=== PATIENT | female | born 1940 | race Caucasian/White ===

== ENCOUNTER 2020-07-16 12:54 | Outpatient (CLI) | payer MEDICARE, OTHER, SELFPAY ==
--- NOTE | ~2020-07-16 | XR_ITS ---
XR knee RT min 4V 07/16/2020 13:29 Indication: Right knee pain Procedure: 4 views right knee Comparison: No prior studies for comparison. Findings: No fracture or traumatic malalignment. The right total knee arthroplasty well seated. No ev idence for loosening. No significant joint effusion. Impression: 1: No significant bone or joint abnormality. Reviewed, dictated and finalized at location B. Impression: 1: No significant bone or joint abnormality.
--- NOTE | ~2020-07-16 | XR_ITS ---
XR knee LT min 4V 07/16/2020 13:29 Indication: 4 views left knee Procedure: 4 views left knee Comparison: No prior studies for comparison Findings: No fracture or traumatic malalignment. Mild tricompartment osteoarthritis. There is chondro calcinosis. No significant joint effusion. No foreign bodies. No focal soft tissue abnormality. Impression: 1: Mild osteoarthritis of the left knee. 2: Chondrocalcinosis. Reviewed, dictated and finalized at location B. Impression: 1: Mild osteoarthritis of the left knee. 2: Chondrocalcinosis.
== END 2020-07-16 12:55 | disposition home or self-care (01) ==
LOC: ANHIMG 13:04
PROVIDERS: PCP Family Medicine; Visit Provider Orthopaedic Surgery
DX: M17.12 Unilateral primary osteoarthritis, left knee (principal); M25.561 Pain in right knee
CPT/HCPCS: 73564

== ENCOUNTER 2021-07-03 10:46 | Outpatient (CLI) | payer MEDICARE, OTHER, SELFPAY ==
--- NOTE | 2021-07-03 11:13 | ECG_ITS ---
Measurements Intervals [place] Rate: 66 P: 213 VT: 168 QRS: 28 QRSD: 93 T: -14 QT: 406 QTc: 426 Interpretive Statements ELECTRONIC ATRIAL PACEMAKER NONSPECIFIC ST & T-WAVE ABNORMALITY ABNORMAL ECG NO PREVIOUS ECG AVAILABLE FOR COMPARISON Electronically Signed On 07-03-2021 15:56:49 CDT by Emerson Diaz M.D.
[2021-07-03 11:22] LABS: Hematocrit 40.8 % (37.0-47.0); Hemoglobin 13.1 g/dL (12.0-15.0)
[2021-07-03 11:34] LABS: Albumin Level 4.7 g/dL (3.5-5.1); Estimated Glomerular Filt Rate 60
== END 2021-07-03 10:47 | disposition home or self-care (01) ==
PROVIDERS: PCP Family Medicine; Visit Provider Orthopaedic Surgery
DX: Z01.818 Encounter for other preprocedural examination (principal); M17.12 Unilateral primary osteoarthritis, left knee; I10 Essential (primary) hypertension; Z95.0 Presence of cardiac pacemaker
CPT/HCPCS: 36415; 82040; 82565; 85014; 85018; 93005

== ENCOUNTER 2021-07-08 07:28 | Outpatient (CLI) | payer MEDICARE, OTHER, SELFPAY ==
--- NOTE | ~2021-07-08 | CT_ITS ---
EXAMINATION: CT LE LT wo con DATE: 07/08/2021 08:05 INDICATION: Unilateral primary osteoarthritis of the left knee TECHNIQUE: High resolution computed tomography (CT) of the left lower limb from the hip through the f oot was performed without intravenous contrast. Additional sagittal and coronal reconstructions were performed. Automated exposure control and iterative reconstruction technique were employed. The dose- length product was 1440.64 mGy-cm. COMPARISON: Radiographs dated 07/16/2020 FINDINGS: Bone alignment is normal. No fracture. There is joint space narrowing at the knees, mild in the later al compartment and mild to moderate in the medial compartment although severity of joint space narrow ing can be underestimated on nonweightbearing imaging. No knee joint effusion. Chondrocalcinosis invo lving the medial and lateral menisci of the left knee. Left knee joint effusion. Small amount of dyst rophic calcification at the distal semimembranosus tendon as well as along the anterior cruciate liga ment which could be either enthesopathic or related to a crystal deposition disease. Additional small amount of dystrophic calcification along the posterior deep deltoid ligament at the left ankle also likely either sequela of prior trauma or related to crystal deposition disease. Mild left hip osteoarthritis. 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 Soft tissues are otherwise unre markable. No pathologically enlarged lymphadenopathy left groin or visualized pelvis. IMPRESSION: 1. Chondrocalcinosis at the left knee with at least mild to moderate osteoarthritis in the medial com partment. 2. Subtle dystrophic calcific lesions at the anterior cruciate ligament, semimembranosus tendon and d eep deltoid ligament at the ankle which could be either degenerative, sequela of old trauma or potent ially related to a crystalline deposition disease such as gout or calcium pyrophosphate deposition (C PPD) disease. Reviewed, dictated and finalized at location A. IMPRESSION: 1. Chondrocalcinosis at the left knee with at least mild to moderate osteoarthr itis in the medial compartment. 2. Subtle dystrophic calcific lesions at the anterior cruciate ligament, semime mbranosus tendon and deep deltoid ligament at the ankle which could be either d egenerative, sequela of old trauma or potentially related to a crystalline depo sition disease such as gout or calcium pyrophosphate deposition (CPPD) disease.
== END 2021-07-08 07:29 | disposition home or self-care (01) ==
LOC: ANHIMG 07:35
PROVIDERS: PCP Family Medicine; Visit Provider Orthopaedic Surgery
DX: Z01.818 Encounter for other preprocedural examination (principal); M11.262 Other chondrocalcinosis, left knee; D17.9 Benign lipomatous neoplasm, unspecified; M17.12 Unilateral primary osteoarthritis, left knee; M25.462 Effusion, left knee
CPT/HCPCS: 73700

== ENCOUNTER 2021-08-28 13:50 | Outpatient (CLI) | payer MEDICARE, OTHER, SELFPAY ==
[2021-08-28 15:31] LABS: Basophils Percent Auto 0.6 % (0.2-1.2); Eosinophils Absolute Auto 0.1 K/mm3 (0-0.3); Eosinophils Percent Auto 1.4 % (0-4.4); Hematocrit 40.4 % (37.0-47.0); Hemoglobin 12.9 g/dL (12.0-15.0); Immature Granulocyte Absolute 0.01 K/mm3 (0.00-0.031); Immature Granulocyte Percent A 0.2 % (0-0.5); Lymphocytes Absolute Auto 1.69 K/mm3 (0.9-3.2); Lymphocytes Percent Auto 25.5 % (18.3-44.2); Mean Corpuscular HGB Conc 31.9 g/dl (32-36); Mean Corpuscular Hemoglobin 29.3 pg (26-34); Mean Corpuscular Volume 91.6 fl (80-100); Mean Platelet Volume 9.9 fl (7.4-10.4); Monocytes Absolute Auto 0.6 K/mm3 (0.1-0.6); Monocytes Percent Auto 8.6 % (2.6-8.5); Neutrophils Absolute Auto 4.2 K/mm3 (1.3-6.7); Neutrophils Percent Auto 63.7 % (45.5-73.1); Platelet Count Result 166 k/mm3 (150-375); Red Blood Count 4.41 M/mm3 (4.2-5.4); Red Cell Distribution Width 12.7 % (11.5-14.5); White Blood Count 6.6 K/mm3 (4.5-10.0)
[2021-08-28 15:35] LABS: Albumin Level 4.7 g/dL (3.5-5.1); Estimated Glomerular Filt Rate 53; Glucose 92 mg/dL (65-110)
[2021-08-28 15:48] LABS: Urine Cotinine NEGATIVE
== END 2021-08-28 13:51 | disposition home or self-care (01) ==
LOC: ANHSURGERY 13:56
PROVIDERS: PCP Family Medicine; Visit Provider Orthopaedic Surgery
DX: M17.12 Unilateral primary osteoarthritis, left knee (principal); Z01.818 Encounter for other preprocedural examination
CPT/HCPCS: 80307; 82040; 82565; 82947; 83036; 85025; 87081

== ENCOUNTER 2021-09-24 00:48 | Day surgery (SDC) | payer MEDICARE, SELFPAY ==
--- NOTE | 2021-08-28 14:05 | PC.NURSE ---
Report to the Outpatient Waiting Room, entrance under the green pavilion located off [facility], at time _0600_ on date _09/24/21_. OR Time: _0730_. - You and your visitor will be asked a series of questions to screen for COVID 19 for your protection. - Only one visitor is allowed at this time. - The patient visitor is requested to leave or wait in car when not with patient. - A mask is required within the hospital. Patients may have clear liquids (water, carbonated beverages, clear teas, apple juice) until 3 hours prior to surgery (0430 AM) with a maximum of 20 ounces. - No food from midnight until time of surgery Take the following medications with a SIP of water the morning of surgery: _AMLODIPINE, LEVOTHYROXINE, SERTRALINE_ Medications to discontinue per DR. MORALES - ASPIRIN 7 DAYS PRIOR TO SURGERY, Date to take last dose 09/16/[address] MORALES AT 08/28/21 3:15 APPT_ Medications to discontinue per ANESTHESIA - MULTIVITAMIN, VITAMIN E, PROBIOTIC - 3 DAYS PRIOR TO SURGERY, Date to take last dose 09/20/21 Please no make-up, nail central african, hairspray, perfume, deodorant, or body powder the day of surgery. No jewelry (including any body piercings) or valuables the day of surgery, leave them at home. Please take a shower or bath the night before, or the morning of, surgery with an antibacterial soap. Wear comfortable, loose fitting clothing. - Jewelry must be removed prior to entering the operating room. Rings and piercings that are not removed may be cut off. - The hospital will not accept responsibility for valuables. - Please leave all valuables, including medications, at home the day of surgery. If you are going home after surgery, a licensed bottom hoop driver must drive you home. - NO public transportation without another adult. - We recommend that an adult stay with you for 24 hours following discharge. - We also recommend that you do not drive, make important decision, drink alcoholic beverages, or take any drugs that were not prescribed by your health care provider for at least 24 hours after your discharge time. Follow any additional instructions given to you from DR. MORALES. TOTAL JOINT CLASS 09/04/21 @ [address] [place] [address]-USE MAIN ENTRANCE, LOWER LEVEL If you or anyone in your household have experienced Covid symptoms in the past week, please notify your surgeon or the nurse liaison at the phone number below for possible testing. Instructions given to ___PT and asked if any additional questions and then verbalized understanding. Patient advised to call surgeon office or pre surgery nurse liaison [phone] if any additional questions.
[2021-08-28 14:29] VITALS: BP 154/76; PULSE 66; RESP 18; TEMP 36.6; O2SAT 96; BMI 25.4
[2021-09-24] VITALS (16 sets, daily range): BP systolic 101–154; BP diastolic 46–74; PULSE 60–69; RESP 12–18; TEMP 36.3–37.1; O2SAT 94–100
--- NOTE | ~2021-09-24 | XR_ITS ---
EXAMINATION: XR knee LT 2V DATE: 09/24/2021 11:54 CDT INDICATION: Left knee arthroplasty TECHNIQUE: 2 views left knee FINDINGS: There is a left total knee arthroplasty in expected position. Subcutaneous gas with fluid and air in the joint are consistent with recent surgery. No evidence of periprosthetic fracture. IMPRESSION: 1. Recent left total knee arthroplasty. Reviewed, dictated and finalized at location A.
[2021-09-24] MEDS: LACTATED RINGERS 1,000 ML 30 ML IV CONT ×2 (07:02→10:07)
--- NOTE | 2021-09-24 07:03 | WPDHPUPDATE1 ---
History and Physical Update Update Date/Time: 09/24/21 07:03 History and Physical has been reviewed, including an updated exam of the patient. There are NO changes in the patient's condition. Risks, benefits, and alternatives have been discussed and questions answered. Patient agrees to proceed with procedure.
[2021-09-24] MEDS: ACETAMINOPHEN 500 MG TABLET 1000 MG PO (07:05)
[2021-09-24] MEDS: TRANEXAMIC ACID 1,000MG/ISO100 1,000 MG/100 ML BAG 200 MG IVPB (07:05)
--- NOTE | 2021-09-24 07:08 | WPDANESEPPF ---
Anes - Initial Pre Proc Eval Procedure: Operation Date: 09/24/21 07:30 Proposed Procedures p Left Custom Total Knee Arthroplasty - Edgar Wolfe MD Date/Time: 09/24/21 07:08 Surgeon: Edgar Wolfe MD Pre Op Diagnosis: Prim O.A. Lt Knee Patient Data Age: 81 Gender: F Height: 1.55 m Weight: 61.1 kg Last Vital Signs Temp 36.6 C 08/28/21 14:29 Pulse 66 08/28/21 14:29 Resp 18 08/28/21 14:29 BP 154/76 H 08/28/21 14:29 Pulse Ox 96 08/28/21 14:29 O2 Del Method Room Air 08/28/21 14:29 Allergies Allergy/AdvReac Type Severity Reaction Status Date / Time fexofenadine Allergy Severe CHEST PAIN Verified 08/28/21 14:21 prochlorperazine Allergy Severe LOSE Verified 08/28/21 14:21 CONTROL OF LEGS AND TONGUE codeine Allergy Intermediate VOMITING Verified 08/28/21 14:21 hydrocodone Allergy Intermediate VOMITING Verified 08/28/21 14:21 oxybutynin Allergy Intermediate Swelling- Verified 08/28/21 14:21 THROAT CLOSE UP propoxyphene Allergy Intermediate VOMITING Verified 08/28/21 14:21 Sulfa (Sulfonamide Allergy Intermediate Rash Verified 09/20/21 07:56 Antibiotics) erythromycin base Allergy Unknown Unknown-PT Verified 08/28/21 14:21 UNABLE TO RECALL carbamazepine AdvReac Intermediate SICK TO Verified 08/28/21 14:21 STOMACH pentazocine AdvReac Intermediate SICK TO Verified 08/28/21 14:21 STOMACH venlafaxine AdvReac Intermediate VIOLENT Verified 08/28/21 14:21 SHIVERS metoclopramide AdvReac Mild NERVOUS Verified 08/28/21 14:21 Home Medications Medication Instructions Recorded Confirmed Type amlodipine 5 mg tablet 5 mg PO BID 07/13/20 09/24/21 History calcium 600 mg (1,500 mg)-vit 1 tablet PO QAM 07/13/20 09/24/21 History C-vit D3 500 unit-vit E-minerals tablet coenzyme Q10 300 mg capsule (Co 300 mg PO QAM 07/13/20 09/24/21 History Q-10) doxepin 10 mg capsule 10 mg PO HS 07/13/20 08/28/21 History famotidine 20 mg tablet 20 mg PO BID 07/13/20 09/24/21 History levothyroxine 88 mcg capsule 88 mcg PO QAM 07/13/20 09/24/21 History mirabegron 25 mg tablet,extended 50 mg PO QAM 07/13/20 08/28/21 History release 24 hr pantoprazole 20 mg tablet,delayed 20 mg PO QAM 07/13/20 08/28/21 History release sertraline 50 mg tablet 50 mg PO QAM 07/13/20 09/24/21 History vitamin E (dl, acetate) 180 mg 45 mg PO QAM 07/13/20 09/24/21 History (400 unit) capsule aspirin 325 mg tablet 325 mg PO DAILY 07/25/21 09/24/21 History Probiotic 1 cap QAM 08/28/21 09/24/21 History cholecalciferol (vitamin D3) 125 125 mcg PO QAM 08/28/21 09/24/21 History mcg (5,000 unit) capsule Patient hx anesthesia problems: none Family hx anesthesia problems: none Results Review: All pre-operative results and documents have been reviewed as part of the pre-operative evaluation. FOR[facility]LY [facility] Past Medical History Medical History Anemia Atherosclerosis of coronary artery Coronary artery disease Essential (primary) hypertension History of falling History of pacemaker (~07/13/19) History of TIA (transient ischemic attack) Hypotension Hypotensive episode Hypothyroidism Iron deficiency Mixed hyperlipidemia Symptomatic sinus bradycardia Trigeminal neuralgia syndrome Surgical History Surgical History History of appendectomy History of cataract surgery (~2017) History of hysterectomy History of knee replacement procedure of right knee (~11/14/13) History of laparoscopy Scar tissue removed from colon and bladder History of lymph node biopsy Lymph nodes taken out of neck History of surgery (~12/21/19) Cyberknife (1 hour radiation of heart) History of tonsillectomy Status post total knee replacement, right Social History Social History Second hand tobacco smoke exposure: No Add
--- NOTE | 2021-09-24 07:11 | WPDANESPNB ---
Anes - Peripheral Nerve Block Date/Time: 09/24/21 07:11 I have discussed with the patient/family/POA the placement of a peripheral nerve block for post-operative pain management, including associated risks, benefits, complications, and side effects. Alternative methods of post-operative analgesia were detailed. Questions were solicited and answers provided to the satisfaction of the patient/family/POA. Time-Out: A pre-procedural Time-Out was completed immediately before starting the procedure and confirmed: Patient Identification, Site, Procedure, Patient Position and the Availability of Requisite Equipment. Clinical Indications: Acute post-operative pain management requested by the operative surgeon. Nerve Block Insertion Note Anes-nerve block: adductor canal left Patient position: supine Skin prep: chlorhexidine Needle: 22 gauge, stimulating, insulated echogenic needle. Needle length: 80 mm Technique: ultrasound Technique comment: in plane Injectate: bupivacaine 0.5% with epi 5 mcg/ml (30cc) Observations: tolerated well Complications: none Procedure start time:: 720 Procedure end time:: 725
[2021-09-24] MEDS: ceFAZolin 2 GM/D5W 50 ML 2 GM/50 ML BAG IVPB ×3 (07:30→23:06)
--- NOTE | 2021-09-24 09:44 | P.OP_ITS ---
Procedure Note - Detailed Date of Procedure 09/24/21 Pre-op Diagnosis Prim O.A. Lt Knee Post-op Diagnosis Same Procedure Performed Total knee arthroplasty Surgeon Edgar Wolfe MD Lean Process Deployment Consultant Mirna Boles PA-C Anesthesia General and Regional (Subsartorial block.) Description of Procedure Preoperative antibiotics were given. The limb was prepped and draped in the usual sterile fashion with a well-padded tourniquet high on the thigh. The limb was exsanguinated and the tourniquet inflated to 300 mmHg. A longitudinal incision was created just medial to the patella. A trivector approach to the knee was performed. Arthrotomy was taken down through the joint capsule. No significant releases were initially taken. The femur was exposed and the F1 jig was applied. The coring tool was used to remove the cartilage for the F2 jig to sit flush with the bone. The jig was pinned and the distal cut carefully taken. Caliper measurements confirmed appropriate bony resections according to the preoperative templated plan. The F4 cutting jig for the femur was applied, at t he standard rotation. The AP and anterior chamfer cuts were taken. The F5 jig was applied and the posterior chamfer cuts were taken. The tibia was prepared using the T1 jig, after removing cartilage for the jig contact points. Proper alignment was checked with the alignment rebecca. The tibia was cut using the T1u guide. Gap balancing was performed. Gap measurements were taken and the knee was trialed. Excellent alignment and soft tissue balancing was confirmed. The posterior cruciate ligament was recessed along the proximal tibia. Meniscal remnants were removed. The trial components were assembled. Excellent range of motion and proper soft tissue balancing were confirmed throughout the full range of motion. Patellar tracking was excellent. The knee was copiously irrigated periodically throughout the procedure. The real implants were cemented into position. Excess cement was carefully removed. The wound was closed in layers with interrupted #1 Vicryl suture, 2-0 strata fix pope ture, 0 strata fix suture, 2-0 strata fix suture. Steri-Strips placed on the skin with the knee flexed. Sterile bulky dressing applied. The patient was brought to the recovery room in stable condition. There were no complications. Physician biology research assistant, Mirna Boles PA-C, required for surgery; including patient positioning, draping, tissue retraction, maintaining instrument position, cement removal, wound closure, and dressing placement. Implants Conformis Custom total knee arthroplasty. Cemented. Cruciate retaining. 6B insert. Estimated Blood Loss -100.0 Urine Output 400 Drains No Pathology None sent Complications No immediate complications Condition Stable Disposition PACU [facility] Billing Surgery - Charge Forward: Surgery Billing
--- NOTE | 2021-09-24 11:29 | PC.NURSE ---
This patient, Monisha Nowak, was admitted to 2 Medical Room 256-. Patient/family oriented to hospital policies and general routines including ID bracelet, bed and alarms, visiting hours, pain management, procedures, bathroom and other care routines, personal items, smoking policy, room service/diet, and visiting hours. Information on how to activate the Rapid Response Team has been discussed. Patient/Family are encouraged to report perceived risks to care and to ask questions if they do not understand what they are told or what they should do.
[2021-09-24] MEDS: SODIUM CHLORIDE 0.9% IV 1,000 ML 125 ML IV CONT (12:25)
--- NOTE | 2021-09-24 15:00 | PM.IMCN ---
Assessment and Plan Assessment and plan (1) Status post left knee replacement: Code(s): Z96.652 - Presence of left artificial knee joint Status: Acute Assessment and Plan: POD 0 Post op care per ortho Pain medications: Idalmis 5-10mg PO Q4H PRN, scheduled tylenol Cefazolin x 3 bags Zofran for anti emtics DVT aspirin 325mg PO Daily Ice pack PT/OT (2) Hypertension: Code(s): I10 - Essential (primary) hypertension Status: Acute Assessment and Plan: BP is 113/54 Continue home amlodipine Trend BP Adjust therapy as indicated (3) Anemia: Code(s): D64.9 - Anemia, unspecified Status: Acute Assessment and Plan: H/H 12.9/40.4 Anemia labs in the am Supplement as indicated Transfuse per protocol (4) Hypothyroidism: Code(s): E03.9 - Hypothyroidism, unspecified Status: Acute Assessment and Plan: Check TSH Continue home levothyroxine 88mcg Adjust if indicated Plan Thank you for allowing us to consult on this case please call us with any questions thanks HPI Data of Consult Consult date: 09/24/21 Requesting Physician: Edgar Wolfe MD Primary Care Provider: Reno DavisMD Consult Narrative Narrative: Monisha Nowak is a 81 year old female with a PMH of anemia, CAD, TIA, and Hyperlipidemia that is here for an elective left knee replacement with Dr. Wolfe on 09/24/21. She denies any pain or discomfort at this time. She denies any chest pain, shortness of breath, nausea, vomiting, diarrhea, constipation, weakness, or fatigue. Currently patient denies having any pain however she stated that she does still have a block in. She also stated that she is not having any issues and she sitting in the chair. Patient denies any current needs at this time. Patient is anxious about going home and is ready for discharge tomorrow. Patient is a consult from same-day surgery orthopedics Review of Systems Review of Systems: All systems reviewed & are unremarkable except as noted in HPI and below PMFSH Past Medical History Medical History Anemia Atherosclerosis of coronary artery Coronary artery disease Essential (primary) hypertension History of falling History of pacemaker (~07/13/19) History of TIA (transient ischemic attack) Hypotension Hypotensive episode Hypothyroidism Iron deficiency Mixed hyperlipidemia Symptomatic sinus bradycardia Trigeminal neuralgia syndrome Surgical History Surgical History History of appendectomy History of cataract surgery (~2017) History of hysterectomy History of knee replacement procedure of right knee (~11/14/13) History of laparoscopy Scar tissue removed from colon and bladder History of lymph node biopsy Lymph nodes taken out of neck History of surgery (~12/21/19) Cyberknife (1 hour radiation of heart) History of tonsillectomy Status post total knee replacement, right Social History Social History (Updated 09/24/21 @ 15:19 by COLIN Nash) Social History: Patient lives with her and they just moved from [place] to [facility]. Patient's Jose will be her surrogate and she wishes to be a full code at this time. Patient does have 2 kids a son and daughter. She currently lives at home with no stairs. Smoking status: Never smoker Second hand tobacco smoke exposure: No Additional smoking assessment comments: PT DENIES ALL FORMS OF TOBCCO USE Alcohol intake: never Substance use: never Substance use type: does not use Living arrangements: with family Occupation/Education: retired Gender identity (if verbalized by the patient): Female Sexual Orientation (if Verbalized by the Patient): Straight or Heterosexual Spiritual care concerns: No Agree to blood products: Yes M
[2021-09-24] MEDS: SENNA/DOCUSATE SODIUM TABLET 2 TAB PO (16:19)
[2021-09-24] MEDS: MELOXICAM 7.5 MG TABLET PO (16:19)
[2021-09-24] MEDS: FAMOTIDINE 20 MG TABLET PO (20:21)
[2021-09-24] MEDS: amLODIPine BESYLATE 5 MG TABLET PO (20:21)
[2021-09-24] MEDS: DOXEPIN HCL 10 MG CAPSULE PO (20:21)
[2021-09-25 00:24] VITALS: BP 118/50; PULSE 62; RESP 18; TEMP 36.3; O2SAT 95
[2021-09-25 04:46] VITALS: BP 126/57; PULSE 62; RESP 20; TEMP 36.4; O2SAT 97
[2021-09-25 06:19] LABS: Basophils Percent Auto 0.3 % (0.2-1.2); Eosinophils Percent Auto 0.2 % (0-4.4); Hematocrit 32.2 % (37.0-47.0); Hemoglobin 10.3 g/dL (12.0-15.0); Immature Granulocyte Absolute 0.03 K/mm3 (0.00-0.031); Immature Granulocyte Percent A 0.3 % (0-0.5); Lymphocytes Absolute Auto 1.76 K/mm3 (0.9-3.2); Lymphocytes Percent Auto 18.5 % (18.3-44.2); Mean Corpuscular Hemoglobin 29.3 pg (26-34); Mean Corpuscular Volume 91.7 fl (80-100); Mean Platelet Volume 10.4 fl (7.4-10.4); Monocytes Absolute Auto 0.8 K/mm3 (0.1-0.6); Monocytes Percent Auto 8.9 % (2.6-8.5); Neutrophils Absolute Auto 6.8 K/mm3 (1.3-6.7); Neutrophils Percent Auto 71.8 % (45.5-73.1); Platelet Count Result 157 k/mm3 (150-375); Red Blood Count 3.51 M/mm3 (4.2-5.4); White Blood Count 9.5 K/mm3 (4.5-10.0)
[2021-09-25] MEDS: LEVOTHYROXINE SODIUM 88 MCG TABLET PO (06:32)
[2021-09-25] MEDS: ceFAZolin 2 GM/D5W 50 ML 2 GM/50 ML BAG IVPB (06:33)
[2021-09-25 06:35] LABS: Alanine Aminotransferase 14 U/L (6-35); Albumin Level 3.3 g/dL (3.5-5.1); Alkaline Phosphatase 51 U/L (38-126); Anion Gap 1 mmol/L (8-16); Aspartate Amino Transferase 25 U/L (14-36); Bilirubin,Total 0.3 mg/dL (0.2-1.3); Blood Urea Nitrogen 15 mg/dL (7-17); Calcium 7.8 mg/dL (8.4-10.2); Carbon Dioxide 30 mmol/L (22-30); Chloride 105 mmol/L (98-107); Estimated CRCL calculation 33 ml/min; Estimated Glomerular Filt Rate 60; Glucose 84 mg/dL (65-110); Lactate Dehydrogenase 475 U/L (313-618); Magnesium 1.9 mg/dL (1.6-2.3); Potassium 3.8 mmol/L (3.4-5.0); Sodium 136 mmol/L (137-145)
[2021-09-25 06:42] LABS: Transferrin 207 mg/dL (206-381)
[2021-09-25 06:49] LABS: Iron 50 ug/dL (37-170)
[2021-09-25 06:59] LABS: Percent Iron Saturation 16 % (20-50)
[2021-09-25 07:09] LABS: Thyroid Stimulating Hormone Reflex 0.235 uIU/mL (0.465-4.68)
[2021-09-25 07:46] LABS: Folic Acid 8.6 ng/mL (2.76->20)
[2021-09-25] MEDS: predniSONE 5 MG TABLET PO (07:58)
[2021-09-25] MEDS: MELOXICAM 7.5 MG TABLET PO (07:59)
[2021-09-25] MEDS: SERTRALINE HCL 50 MG TABLET PO (07:59)
[2021-09-25] MEDS: ASPIRIN 325 MG TABLET PO (07:59)
[2021-09-25] MEDS: SENNA/DOCUSATE SODIUM TABLET 2 TAB PO (07:59)
[2021-09-25] MEDS: polyethylene glycoL 3350 17 GM POWD.PACK PO (07:59)
[2021-09-25] MEDS: MIRABEGRON 50 MG ER TABLET PO (08:00)
[2021-09-25] MEDS: amLODIPine BESYLATE 5 MG TABLET PO (08:00)
[2021-09-25] MEDS: PANTOPRAZOLE SOD SESQUIHYDRATE 20 MG TAB PO (08:00)
[2021-09-25] MEDS: FAMOTIDINE 20 MG TABLET PO (08:01)
--- NOTE | 2021-09-25 09:45 | PM.IMPN ---
Progress Note: A&P Assessment and Plan (1) Status post left knee replacement: Code(s): Z96.652 - Presence of left artificial knee joint Status: Acute Assessment and Plan: POD 1 Post op care per ortho Pain medications: Idalmis 5-10mg PO Q4H PRN, scheduled tylenol Cefazolin x 3 bags Zofran for anti emtics DVT aspirin 325mg PO Daily Ice pack PT/OT (2) Hypertension: Code(s): I10 - Essential (primary) hypertension Status: Acute Assessment and Plan: BP is 126/57 Continue home amlodipine Trend BP Adjust therapy as indicated (3) Anemia: Code(s): D64.9 - Anemia, unspecified Status: Acute Assessment and Plan: H/H 10.2/32.2 Anemia labs iron 50, TIBC 312,% saturation 16, transferrin 207, ferritin 21.1, folate 8.6 Supplement as indicated Transfuse per protocol (4) Hypothyroidism: Code(s): E03.9 - Hypothyroidism, unspecified Status: Acute Assessment and Plan: TSH 0.235, T4 1.57 Continue home levothyroxine 88mcg Adjust if indicated Time Spent With Patient Time with patient: Greater than 35 minutes Subjective Date/time seen: 09/25/21944 Interval history: 09/25/21944 Patient is doing well today. She states that she has no pain and she is doing well with just Tylenol. She denies any chest pain, shortness of breath, nausea, vomiting, diarrhea, constipation, weakness or fatigue. Patient is currently sitting in the chair and looks good. She denies any swelling or any abnormal movements in her leg or knee. I am hopeful patient will be discharged today 09/24/21 1500 Monisha Nowak is a 81 year old female with a PMH of anemia, CAD, TIA, and Hyperlipidemia that is here for an elective left knee replacement with Dr. Wolfe on 09/24/21. She denies any pain or discomfort at this time.? She denies any chest pain, shortness of breath, nausea, vomiting, diarrhea, constipation, weakness, or fatigue.? Currently patient denies having any pain however she stated that she does still have a block in.? She also stated that she is not having any issues and she sitting in the chair.? Patient denies any current needs at this time.? Patient is anxious about going home and is ready for discharge tomorrow. Review of Systems Review of Systems: All systems reviewed & are unremarkable except as noted in HPI and below Exam Const: General: cooperative, healthy appearing, no acute distress, well developed, alert and awake Nutritional Appearance: well nourished Orientation/consciousness: patient oriented x3 Limitations: no limitations HENMT: Head: normal to inspection Ears: hearing grossly normal bilaterally General nose exam: Normal external nose present Mouth: Yes Normal oral and palatal mucosa present, Yes lip normal and Yes tongue normal Teeth and gingiva: abnormal tooth and associated gingiva and poor dentition Eyes: General: appearance normal, both eyes and all related structures Neck: Neck: normal visual inspection, full ROM, trachea midline and supple Chest: Chest palpation & inspection: normal inspection of the chest Resp: Effort & Inspection: normal respiratory effort and able to speak in complete sentences Auscultation: clear to auscultation bilaterally Cardio: Jugular venous distension: no JVD Rate: regular rate Rhythm: regular rhythm Heart sounds: S1 normal heart sound present and S2 normal heart sound present Peripheral pulses: Peripheral pulses 2+ throughout GI: Inspection: normal to inspection Auscultation: normal bowel sounds Skin: General skin exam: normal color and no rashes or lesions noted Lesions: no lesions Rashes: no rashes Trauma: laceration Wounds: wounds noted Hair: normal Nails: normal Neuro: General: patient oriented x3, moves all extremities and Normal light touch and pain sensation Speech: normal speech Gait exam (Neuro): Normal gait present Extrem: General: normal to
[2021-09-25 09:50] VITALS: BP 105/45; PULSE 61; RESP 16; TEMP 36.2; O2SAT 98
[2021-09-25 09:56] LABS: Free T4 Free Thyroxine Reflex 1.57 ng/dL (0.78-2.19)
--- NOTE | 2021-09-25 10:26 | WPDANESPN ---
Anes - Prog Note Post-Op Date/Time: 09/25/21 10:26 Cardiovascular status: normal Respiratory status: normal Airway patency: baseline Mental status: baseline Post-Op hydration status: normal Vital Signs: Last Vital Signs Temp 36.2 C L 09/25/21 09:50 Pulse 61 09/25/21 09:50 Resp 16 09/25/21 09:50 BP 105/45 L 09/25/21 09:50 Pulse Ox 98 09/25/21 09:50 O2 Del Method Room Air 09/25/21 08:00 O2 Flow Rate 8 09/24/21 10:40 Pain Score (VAS): 0 I/O: Intake & Output 09/24/21 09/25/21 09/25/21 23:59 07:59 15:59 Intake Total 570 390 240 Output Total 300 400 400 Balance 270 -10 -160 Laboratory Tests 09/25/21 05:31 09/25/21 05:31 09/25/21 09/25/21 09/25/21 05:31 05:31 05:31 WBC 9.5 RBC 3.51 L Hgb 10.3 L Hct 32.2 L MCV 91.7 MCH 29.3 MCHC 32.0 RDW 13.0 Plt Count 157 MPV 10.4 Immature Gran % (Auto) 0.3 Neut % (Auto) 71.8 Lymph % (Auto) 18.5 Caroline % (Auto) 8.9 H Eos % (Auto) 0.2 Baso % (Auto) 0.3 Lymph # (Auto) 1.76 Caroline # (Auto) 0.8 H Eos # (Auto) 0.0 Baso # (Auto) 0.0 Abs Immat Gran (auto) 0.03 Absolute Neuts (auto) 6.8 H Absolute Nucleated RBC 0.0 Nucleated RBC % 0.0 Sodium 136 L Potassium 3.8 Chloride 105 Carbon Dioxide 30 Anion Gap 1 L BUN 15 Creatinine 0.90 Estim Creat Clear Calc 33 Estimated GFR 60 Glucose 84 Calcium 7.8 L Magnesium 1.9 Iron 50 TIBC 312 % Saturation 16 L Transferrin 207 Ferritin 21.10 Total Bilirubin 0.3 AST 25 ALT 14 Alkaline Phosphatase 51 Lactate Dehydrogenase 475 Total Protein 5.0 L Albumin 3.3 L Vitamin B12 Pending Folate 8.6 TSH (Reflex) 0.235 L Free T4 Total T3 09/25/21 09/25/21 05:31 05:31 WBC RBC Hgb Hct MCV MCH MCHC RDW Plt Count MPV Immature Gran % (Auto) Neut % (Auto) Lymph % (Auto) Caroline % (Auto) Eos % (Auto) Baso % (Auto) Lymph # (Auto) Caroline # (Auto) Eos # (Auto) Baso # (Auto) Abs Immat Gran (auto) Absolute Neuts (auto) Absolute Nucleated RBC Nucleated RBC % Sodium Potassium Chloride Carbon Dioxide Anion Gap BUN Creatinine Estim Creat Clear Calc Estimated GFR Glucose Calcium Magnesium Iron TIBC % Saturation Transferrin Ferritin Total Bilirubin AST ALT Alkaline Phosphatase Lactate Dehydrogenase Total Protein Albumin Vitamin B12 Folate TSH (Reflex) Free T4 1.57 Total T3 Pending Post-procedural complaints: none Patient Feedback: Patient satisfied with anesthetic care.
[2021-09-25 11:25] LABS: Total Triiodothyronine (T3) 0.72 NG/ML (0.97-1.69)
--- NOTE | 2021-09-25 14:15 | PM.DS ---
DS: Admitting Diagnosis Discharge Date September 25 2021 Admitting Diagnosis Knee arthritis DS: Discharge Diagnosis Discharge Diagnosis (1) Status post left knee replacement: Code(s): Z96.652 - Presence of left artificial knee joint Status: Acute DS: Summary Hospital Course Reason for hospitalization: Total knee arthroplasty. Hospital Course: Tolerated surgery well. Progressed appropriately with therapy. Status at Discharge Functional status at discharge: uses cane/walker Overall status at discharge: patient is progressing back to baseline Time Spent with Patient Time attestation: Total time spent providing and/or coordinating discharge services: Exam Const: General: no acute distress Resp: Effort & Inspection: normal respiratory effort Skin: Other: Wound healing well. Mepilex dressing intact. No hematoma or drainage. Neuro: Motor exam (neuro): 5/5 motor strength present throughout Sensory Exam: normal sensation Psych: Mental Status: mental status grossly normal Speech and movement: Normal speech and movement present DS: Data Data Completed and Pending Labs on day of discharge: Labs from last 24 hours 09/25/21 09/25/21 09/25/21 05:31 05:31 05:31 WBC RBC Hgb Hct MCV MCH MCHC RDW Plt Count MPV Immature Gran % (Auto) Neut % (Auto) Lymph % (Auto) Payette % (Auto) Eos % (Auto) Baso % (Auto) Lymph # (Auto) Payette # (Auto) Eos # (Auto) Baso # (Auto) Abs Immat Gran (auto) Absolute Neuts (auto) Absolute Nucleated RBC Nucleated RBC % Sodium Potassium Chloride Carbon Dioxide Anion Gap BUN Creatinine Estim Creat Clear Calc Estimated GFR Glucose Calcium Magnesium Iron 50 TIBC 312 % Saturation 16 L Transferrin Ferritin 21.10 Total Bilirubin AST ALT Alkaline Phosphatase Lactate Dehydrogenase Total Protein Albumin Vitamin B12 Folate TSH (Reflex) 0.235 L Free T4 1.57 Total T3 0.72 L 09/25/21 09/25/21 05:31 05:31 WBC 9.5 RBC 3.51 L Hgb 10.3 L Hct 32.2 L MCV 91.7 MCH 29.3 MCHC 32.0 RDW 13.0 Plt Count 157 MPV 10.4 Immature Gran % (Auto) 0.3 Neut % (Auto) 71.8 Lymph % (Auto) 18.5 Payette % (Auto) 8.9 H Eos % (Auto) 0.2 Baso % (Auto) 0.3 Lymph # (Auto) 1.76 Payette # (Auto) 0.8 H Eos # (Auto) 0.0 Baso # (Auto) 0.0 Abs Immat Gran (auto) 0.03 Absolute Neuts (auto) 6.8 H Absolute Nucleated RBC 0.0 Nucleated RBC % 0.0 Sodium 136 L Potassium 3.8 Chloride 105 Carbon Dioxide 30 Anion Gap 1 L BUN 15 Creatinine 0.90 Estim Creat Clear Calc 33 Estimated GFR 60 Glucose 84 Calcium 7.8 L Magnesium 1.9 Iron TIBC % Saturation Transferrin 207 Ferritin Total Bilirubin 0.3 AST 25 ALT 14 Alkaline Phosphatase 51 Lactate Dehydrogenase 475 Total Protein 5.0 L Albumin 3.3 L Vitamin B12 Pending Folate 8.6 TSH (Reflex) Free T4 Total T3 Discharge Plan Discharge Patient Disposition: Home, Self-Care Discharge Instructions: See instruction sheet. Stand Alone Forms: General Discharge Instructions Follow-up/Referrals: Edgar Wolfe MD [Physician] - Discharge Medications: New prednisone 5 mg Tablet 5 mg PO DAILY@0800 14 Days Qty: 14 0RF oxycodone-acetaminophen 5-325 mg tablet 1 - 2 tablet PO Q4-6H MDD 6 tablets PRN (Reason: pain) Qty: 30 0RF meloxicam 15 mg tablet 15 mg PO DAILY Qty: 30 0RF Continued amlodipine 5 mg tablet 5 mg PO BID calcium carb-vit M-[id number]-min 600 mg (1,500 mg)-500 unit tablet 1 tablet PO QAM Co Q-10 300 mg capsule 300 mg PO QAM doxepin 10 mg capsule 10 mg PO HS famotidine 20 mg tablet 20 mg PO BID levothyroxine 88 mcg capsule 88 mcg PO QAM mirabegron 25 mg tablet extended release 24 hr 50 mg PO QAM
== END 2021-09-25 14:40 | disposition home or self-care (01) ==
LOC: ANHSURGERY 07:02 → ANH2MED 11:23
PROVIDERS: Nurse Practitioner; PCP Family Medicine; Visit Provider Orthopaedic Surgery
PROC: (CPT 27447; principal; 2021-09-24 07:30)
DX: M17.12 Unilateral primary osteoarthritis, left knee (principal); I10 Essential (primary) hypertension; D64.9 Anemia, unspecified; E03.9 Hypothyroidism, unspecified; I25.10 Atherosclerotic heart disease of native coronary artery without angina pectoris; Z95.0 Presence of cardiac pacemaker; E78.5 Hyperlipidemia, unspecified
CPT/HCPCS: 27447; 36415; 73560; 80053; 82607; 82728; 82746; 83540; 83550; 83615; 83735; 84439; 84443; 84466; 84480; 85025; 86850; 86900; 86901; 97110; 97161; 97165; 97530; 97535; A9270; C1713; C1776; J0131; J0171; J0690; J1100; J1885; J2405; J2704; J2795; J3010; J7030; J7120; J7512

== ENCOUNTER 2024-10-11 15:58 | Outpatient (CLI) | payer MEDICARE, SELFPAY ==
--- NOTE | ~2024-10-11 | XR_ITS ---
EXAM/ PROCEDURE: XR knee LT 3V - 10/11/2024 16:20 CDT HISTORY: 84 years old Female with Z96.652 - Presence of left artificial knee joint COMPARISON: 09/24/2021 TECHNIQUE: Three view(s) FINDINGS/ IMPRESSION: Left knee arthroplasty, unchanged since 2021. No hardware fracture or loosening. There are no fractures or dislocations.Joint space narrowing, subchondral sclerosis, subchondral cyst formation and osteophyte formation, compatible with mild osteoarthritis. Reviewed, dictated and finalized at location A.
--- OUTSIDE RECORDS SUMMARY | 2024-10-11 16:08 | XMS_ITS | Patient Health Record ---
Author Organization [facility] Address [address] [place], [place] [id number] Care Team Providers Care Pricer Name Role Phone JUAN DIAZ Unavailable [phone] Yuridia Guerra Unavailable Unavailable Reason For Referral No Information Plan Of Treatment No Information Insurance Providers Payer Name Payer Address Payer Phone Subscriber Number Group Number Insured Name Patient Relationship to Insured Coverage Start Date Coverage End Date Medicare Part B [place] [address] [facility] [place] [address] [id number] MJ HUDSON Self - patient is the insured [facility] [address] [place], [place] [id number] BAKARI HUDSON Spouse - patient is the spouse of the insured
--- OUTSIDE RECORDS SUMMARY | 2024-10-11 16:08 | XMS_ITS | Clinical Summary ---
Author Organization [facility] Address [address] [place] [place] [address] Care Team Providers Care Senior Vice President Name Role Phone Reno Davis MD Primary Care Provider Source Comments [facility],non-owned Affiliates and Associated Physician Practices is amultiple site organization consisting of ambulatory clinics and hospital sitesin [place], [place], [place] and [place]. This disclosure is being madepursuant to the Care Everywhere program and may not contain all information available regarding this patient. Last updated 17.[facility] Allergies Active Allergy Reactions Criticality Noted Date Comments Carbamazepine Nausea and/or Vomiting 03/27/2017 Codeine Nausea and/or Vomiting 03/27/2017 Codeine Nausea and/or Vomiting 03/27/2017 Fexofenadine Unknown 03/27/2017 Heparin Rash Medium 05/16/2018 Metoclopramide Other Low 03/27/2017 anxiety Morphine Nausea and/or Vomiting 07/19/2017 Oxybutynin Unknown 11/13/2016 swelling Prochlorperazine Nausea and/or Vomiting 018 Numbness to legs/EP? Propoxyphene Nausea and/or Vomiting 03/27/2017 Sulfa Drugs Rash Medium 12/04/2016 Tizanidine Other 05/16/2018 insomnia Venlafaxine Urticaria Medium 03/27/2017 tremor Medications * Be aware that medications may not be up to date on this document. Alwaysverify current medications with the patient. doxepin (SINEQUAN) 10 MG capsule Take by mouth. 7 Active OXcarbazepine (TRILEPTAL) 150 MG tablet Take 150 mg by mouth 2 times daily 6 8 Active baclofen (LIORESAL) 10 MG tablet 5 mg 3 times daily 8 Active Cholecalciferol 5000 UNITS Take by mouth once daily Active calcium carbonate (CALTRATE) 600 MG tablet Take 1 tablet by mouth daily with food Active Probiotic Product (PROBIOTIC DAILY PO) Active vitamin E (TOCOPHERYL) 400 UNIT tablet Take by mouth once daily Active Coenzyme Q10 (EQL COQ10) 300 MG Take by mouth once daily Active thiamine (VITAMIN B-1) 100 MG tablet Take 100 mg by mouth once daily Active amLODIPine (NORVASC) 2.5 MG tablet Take 5 mg by mouth once daily 8 Active famotidine (PEPCID) 20 MG tablet Take 20 mg by mouth 2 times daily 9 Active Magnesium Oxide -Mg Supplement 400 MG Take 1,200 mg by mouth once daily Active mirabegron ER 24hr (MYRBETRIQ) 25 MG tablet Take 25 mg by mouth Active pantoprazole EC (PROTONIX) 20 MG tablet TAKE 1 TABLET BY MOUTH TWICE A DAY 0 Active aspirin (ASPIRIN) 325 MG tablet Take 325 mg by mouth once daily 0 Active levothyroxine (TIROSINT) 88 MCG capsule Take 88 mcg by mouth daily before breakfast Active ondansetron, disintegrating, (ZOFRAN ODT) 4 MG tablet TAKE 1 TABLET BY MOUTH EVERY 8 HOURS NEEDED FOR NAUSEA 0 Active rivastigmine (EXELON) 4.6 MG/24HR patch Apply 4.6 mg to skin once daily 0 Active sertraline (ZOLOFT) 50 MG tablet Take 50 mg by mouth once daily 0 Active Active Problems Problem Noted Date Diagnosed Date TIA (transient ischemic attack) 11/01/2018 Amaurosis fugax of left eye 10/11/2018 Trigeminal neuralgia 09/30/2017 Overview (03/13/2020): Right Side V2/V3 Treated medically by Dr. Kate Received Radiosurgery (Cyberknife) 7500 cGy max dose 6000cGy @ 80 % on 12/21/2019 ([facility]as[facility]Liz; [place] [facility]) Assessment & Plan (03/13/2020 9:39 AM DISCOTHEQUE DANCER): Assessment: Complete response to radiosurgery at this time but remains on medical management per Dr. Kate Plan: Continue pain management per Dr. Kate; advised not to discontinue or taper any pain medication without discussion with Dr. Kate Discharged from [facility]; if pain were to recur, re-treatment could be reconsidered Anemia 08/12/2017 HTN (hypertension) 07/21/2017 Atherosclerosis of coronary artery 07/15/2017 Cataracts, bilateral 07/15/2017 Hyperlipidemia 12/18/2016 Primary localized osteoarthritis of left knee Hypothyroidism 11/13/2016 Overview (03/13/2020): Transitioned From: Hypothyroid Family History Medical History Relation Name Comments None Known Daughter Alzheimer's Disease Father Status: Other Mother Status: d None Known Son Multiple Sclerosis Neg Hx Relation Name Status Comments Brother Alive Daughter Alive Father Mother Son Alive Social History Tobacco Use Types Packs/Day Years Used Date Smoking Tobacco: Never Smokeless Tobacco: Never Alcohol Use Standard Drinks/Week Comments No 0 (1 standard drink = 0.6 oz pur e alcohol) Comments No Sex and Gender Information Value Date Recorded Sex Assigned at Not on file Legal Sex Female 5:16 PM DISCOTHEQUE DANCER Gender Identity Not on file Sexual Orientation Not on file 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 file Not on file Not on file Last Filed Vital Signs Vital Sign Reading Time Taken Comments Blood Pressure 152/75 12/23/2019 9:22 AM CDT Pulse 70 12/23/2019 9:22 AM CDT Temperature 36.2 C (97.2 F) 12/21/2019 8:18 AM CDT Respiratory Rate 16 12/23/2019 9:22 AM CDT Oxygen Saturation 100% 12/21/2019 8:18 AM CDT Inhaled Oxygen Concentration - - Weight 64 kg (141 lb) 12/23/2019 9:22 AM CDT Height 154.9 cm (5' 1) 12/23/2019 9:22 AM CDT Body Mass Index 26.64 12/23/2019 9:22 AM CDT Plan of Treatment Health Maintenance Due Date Last Done Comments BONE DENSITY TESTING 1940 MEDICARE AWV 12 MONTHS 1940 DTAP/TDAP/TD VACCINES (1 - Tdap) 1960 PNEUMOCOCCAL VACCINE 50+ (1 of 1 - PCV) 06/02/1991 ZOSTER VACCINE (1 of 2) 06/02/1991 Respiratory Syncytial Virus (RSV) Vaccine Pt: or over 60 yrs (1 - 1-dose 75+ series) 2016 COVID-19 VACCINE ( - 2023-2 5 season) 2023 DEPRESSION SCREENING 03/23/2024 INFLUENZA VACCINE (#1) 2024 0, 11/21/2016 HEPATITIS B VACCINE Aged Out No longe r eligible based on patient's age to complete this topic HIB VACCINE Aged Out No longer eligi ble based on patient's age to complete this topic HPV VACCINE Aged Out No longer eligi ble based on patient's age to complete this topic MENINGOCOCCAL (Group B) VACCINE SHARED DECISION-MAKING Aged Out No longer eligible based on patient's age to complete this topic MENINGOCOCCAL GROUPS A/C/Y/W VACCINE Aged Out No longer eligible b ased on patient's age to complete this topic Insurance MEDICARE [facility]ICARE [facility] Care Teams Senior Vice President Relationship Specialty Start Date End Date Reno Davis MD [address] [place] [address] PCP - General 12/04/16
--- OUTSIDE RECORDS SUMMARY | 2024-10-11 16:08 | XMS_ITS | Encounter Summary ---
Author Organization [facility] Address [address] [place] [address] Care Team Providers Care Steel Handler Name Role Phone Reno Davis MD Primary Care Provider Encounter Details Date Type Department Care Team (Late st Contact Info) Description 01/20/2023 Lab Requisition [facility] [address] [place] [address] Marc Dacosta MD [facility] [address] [place] [phone] Neoplasm of uncertain behavior of skin Social History Tobacco Use Types Packs/Day Years Used Date Smoking Tobacco: Never Smokeless Tobacco: Never Alcohol Use Standard Drinks/Week Comments No 0 (1 standard drink = 0.6 oz pur e alcohol) Comments No Sex and Gender Information Value Date Recorded Sex Assigned at Not on file Legal Sex Female 5:16 PM CANE STRIPPER Gender Identity Not on file Sexual Orientation Not on file 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 file Not on file Not on file documented as of this encounter Plan of Treatment Not on file documented as of this encounter Procedures Procedure Name Priority Date/Time Associated Diagnosis Comments DERMATOPATHOLOGY Routine 01/20/2023 3:33 AM CDT Neoplasm of uncertain behavior of skin documented in this encounter Results * DERMATOPATHOLOGY (01/20/2023 3:33 AM CDT) Case Report Dermatopathology Report Case: [id number] Authorizing Provider: Marc Dacosta MD Collected: 01/20/2023 03:33 AM Ordering Location: [facility] DermPath Lab Received: 01/21/2023 03:13 PM Pathologist: Ashely Turner MD Specimen: Skin, mid frontal scalp 12:25 PM CDT DERMATOPATHOLOGY LABORATORY Final Diagnosis Specimen A. 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 Squamous Cell Carcinoma vs. Actinic Keratosis vs. Impetigo 12:25 PM CDT DERMATOPATHOLOGY LABORATORY Gross Description Specimen A: Received is one formalin filled container labeled with the patient's name and designated mid frontal scalp. The specimen consists of a(2) pieces shave biopsy measuring 2x5x1, 4x9x1 mm. Jar 0. 12:25 PM CDT DERMATOPATHOLOGY LABORATORY Microscopic Description Specimen A. SKIN, mid frontal scalp: There is a dome-shaped portion of skin with psoriasiform epidermal hyperplasia, compact hyperkeratosis, and fibrosis of the papillary dermis associated with a superficial perivascular lymphohistiocytic infiltrate. The lesion is surmounted by parakeratosis containing serum and neutrophils. Collections of coccoid organisms are present in the overlying scale. COMMENT: This is a relatively superficial biopsy and the base of the lesion is no well-visualized. Clinicopathologic correlation is recommended. 12:25 PM CDT DERMATOPATHOLOGY LABORATORY Disclaimer An external and internal positive and negative controls are appropriate for the histochemical, immunohistochemical and immunofluorescence stain(s) in this case (if any), except where stated explicitly. The performance characteristics of the stain(s) cited in this report were developed and its performance characteristic determined by the Dermatopathology Laboratory at [facility], directed by Dr. Lila Leal. These tests need not be, and therefore are not, approved by the [place] Food and Drug Administration. The tests are used for clinical purposes. Billing Codes Specimen Charges Stain Charges 99323 1 3 12:25 PM CDT DERMATOPATHOLOGY LABORATORY Embedded Images 3 12:25 PM CDT DERMATOPATHOLOGY LABORATORY Pathology/Cytolo gy TISSUE SPECIMEN FROM SKIN / Unknown 01/20/2023 3:33 AM CDT 01/21/2023 3:13 PM CDT Marc Dacosta MD LAB - PATHOLOGY/CYTOLOGY ORDE TANYA Final Result DERMATOPATHOLOGY LABORATORY [facility] - Department of Dermatology [facility] [address] [place] [address], [address] Floor [address] [phone] documented in this encounter Visit Diagnoses Diagnosis Neoplasm of uncertain behavior of skin documented in this encounter Care Teams Steel Handler Relationship Specialty Start Date End Date Reno Davis MD [address] [place] [phone] PCP - General 12/04/16 documented as of this encounter
--- OUTSIDE RECORDS SUMMARY | 2024-10-11 16:08 | XMS_ITS | Clinical Summary ---
Author Organization [facility] Address [address] [facility] [address] [place] [address] Phone Care Team Providers Care Art Historian Name Role Phone Reno Davis MD Primary Care Provider [phone] Anil David MD Unavailable [phone] Allergies Active Allergy Reactions Criticality Noted Date Comments Carbamazepine Unknown 03/27/2017 Codeine Nausea 03/27/2017 Fexofenadine Other (see Comments) 03/27/2017 Heparin Rash Low 05/16/2018 Metoclopramide Anxiety Low 03/27/2017 Morphine Nausea 07/19/2017 Oxybutynin Unknown 11/13/2016 swelling Prochlorperazine Nausea 03/27/2017 Numbness to legs/EP? Propoxyphene Nausea 03/27/2017 Sulfa Antibiotics Rash Medium 12/04/2016 Tizanidine Other (see Comments) 05/16/2018 insomnia Venlafaxine Hives 03/27/2017 Medications Vitamin D3 (CHOLECALCIFEROL ) 5000 units Tablet Take by mouth. Active doxepin (SINEQUAN) 10 MG Capsule Take by mouth. Active ezetimibe-simvas tatin (VYTORIN) 10-10 MG Tablet Take by mouth. Active niacin 500 MG Capsule CR Take by mouth. 12/04/2016 Active OXcarbazepine (TRILEPTAL) 150 MG Tablet Take by mouth 3 times daily. Active Probiotic Capsule Take by mouth. Active vitamin B-1 (THIAMINE) 50 MG Tablet Take by mouth. 12/04/2016 Active Turmeric 450 MG Capsule Take by mouth. 12/04/2016 Active vitamin E (TOCOPHEROL) 400 UNIT Capsule Take by mouth. Active Coenzyme Q10 (CO Q-10) 300 MG Capsule Take by mouth. Active traZODone (DESYREL) 50 MG Tablet 03/10/2019 Active pantoprazole (PROTONIX) 20 MG Tablet Delayed Response Take 20 mg by mouth. 03/21/2019 Active famotidine (PEPCID) 20 MG Tablet Take 20 mg by mouth. 01/13/2019 Active docusate sodium (COLACE) 100 MG Capsule Take 100 mg by mouth 2 times daily. 12/29/2018 Active calcium carbonate 600 MG Tablet Take 600 mg by mouth. Active baclofen (LIORESAL) 10 MG Tablet Take 5 mg by mouth. 07/30/2017 Active Magnesium Oxide 400 MG Capsule Take 1,200 mg by mouth. Active ondansetron (ZOFRAN-ODT) 4 MG TABLET DISPERSIBLE TAKE 1 TABLET BY MOUTH EVERY 8 HOURS NEEDED FOR NAUSEA 02/22/2020 Active sertraline (ZOLOFT) 50 MG Tablet TAKE 1 TABLET BY MOUTH EVERY DAY 12/08/2019 Active amLODIPine (NORVASC) 5 MG Tablet TAKE 1 TABLET BY MOUTH TWICE A DAY 04/16/2020 Active aspirin 325 MG Tablet Take 325 mg by mouth. 12/06/2019 Active levothyroxine (SYNTHROID) 88 MCG Tablet Take 88 mcg by mouth daily. 03/02/2020 Active Mirabegron ER 50 MG TABLET SR 24 HR Take 50 mg by mouth. 02/24/2020 Active Active Problems Problem Noted Date Diagnosed Date Night sweats 08/28/2017 Iron deficiency anemia due to chronic blood loss 08/28/2017 Family History Medical History Relation Name Comments Dementia Father Relation Name Status Comments Father Social History Tobacco Use Types Packs/Day Years Used Date Smoking Tobacco: Never Smokeless Tobacco: Never Alcohol Use Standard Drinks/Week Comments No 0 (1 standard drink = 0.6 oz pur e alcohol) PHQ-2 Answer Date Recorded Total Score - Questions 1-9 0 04/23 Comments No Sex and Gender Information Value Date Recorded Sex Assigned at Not on file Legal Sex Female 3:00 PM CDT Gender Identity Not on file Sexual Orientation Not on file Last Filed Vital Signs Vital Sign Reading Time Taken Comments Blood Pressure 132/82 05/09/2020 10:30 AM COMPLETION MANAGER Pulse 60 05/09/2020 10:30 AM COMPLETION MANAGER Temperature 36.4 C (97.6 F) 05/09/2020 10:30 AM COMPLETION MANAGER Respiratory Rate 16 05/09/2020 10:30 AM COMPLETION MANAGER Oxygen Saturation 97% 05/09/2020 10:30 AM COMPLETION MANAGER Inhaled Oxygen Concentration - - Weight 63.7 kg (140 lb 8 oz) 05/09/2020 10:30 AM COMPLETION MANAGER Height 157.5 cm (5' 2) 05/09/2020 10:30 AM COMPLETION MANAGER Body Mass Index 25.7 05/09/2020 10:30 AM COMPLETION MANAGER Plan of Treatment Health Maintenance Due Date Last Done Comments Hepatitis C Virus (HCV) Screening 1940 Respiratory Syncytial Virus (RSV) Immunization (Adult) (1 - 1-dose 75+ series) 2016 SARS-COV-2 Immunization (2 - season) 2023 04/18/2020 Influenza Immunization (#1) 2024 0905/2019, 11/15/2018, 12/21/2017, Additional history exists Pneumococcal Immunization (50+ years) Completed 05/17/2014, 09/03/2006 Pneumococcal Immunization Combined Discontinued 05/17/2014, 09/03/2006 DTaP/Tdap/Td Immunization Discontinued 03/03/2017, TdaP Immunization Completed 03/03/2017, 11/03/2012 Zoster Immunization Completed 08/05/2018, 8 Hepatitis B Immunization Aged Out No longer eligible based on patient's age to complete this topic Human Papillomavirus (HPV) Immunization Aged Out No longer eligible based on patient's age to complete this topic Meningococcal Immunization (ACWY) Aged Out No longer eligible based on patient's age to complete this topic Rotavirus Immunization Aged Out No lo nger eligible based on patient's age to complete this topic Insurance [facility] GENERIC MEDICARE Care Teams Art Historian Relationship Specialty Start Date End Date Reno Davis MD PCP - General Family Medicine 08/28/17 Anil David MD Consulting Physician Oncology 08/28/17
== END 2024-10-11 15:59 | disposition home or self-care (01) ==
LOC: ANHIMG 16:06
PROVIDERS: PCP Family Medicine; Visit Provider Orthopaedic Surgery
DX: Z96.652 Presence of left artificial knee joint (principal)
CPT/HCPCS: 73562